=== PATIENT | female | born 1950 | race Two or more races ===

== ENCOUNTER 2021-06-19 05:40 | Day surgery (SDC) | payer OTHER ==
[~2021-06-19 05:40] MED LIST: FENO PO; FOSAMA PO; PROTONIX40 M1 PO; TOPROL XL50 M1 PO
[2021-06-19] MEDS ORDERED: MACROBID 100 M100 MG PO (11:00)
[2021-06-19] MEDS ORDERED: ACETAMINOPHEN-1 EAC2 PO (11:02)
== END 2021-06-19 13:40 | disposition home or self-care (01) ==
LOC: CIR.AMB 05:40
PROVIDERS: ATTEND Obstetrics & Gynecology Gynecology
DX: N81.11 Cystocele, midline (principal); Z91.041 Radiographic dye allergy status; Z86.16 Personal history of COVID-19; E78.5 Hyperlipidemia, unspecified; I73.9 Peripheral vascular disease, unspecified; N81.12 Cystocele, lateral

== ENCOUNTER → 2021-06-19 06:24 | Outpatient (CLI) | payer OTHER ==
[~2021-06-19 06:24] MED LIST changes: +ACETAMINOPHEN-1 EAC2 PO; +MACROBID 100 M100 MG PO
== END | disposition home or self-care (01) ==
LOC: LAB 06:24
PROVIDERS: ATTEND Obstetrics & Gynecology Gynecology
DX: Z20.828 Contact with and (suspected) exposure to other viral communicable diseases (principal)